=== PATIENT | male | born 1980 | race Two or more races ===

== ENCOUNTER 2023-07-31 11:27 | Inpatient (IN) | payer OTHER ==
[~2023-07-31] VITALS: Ht 154.9 cm; Wt 75.0 kg
[2023-07-31 16:58] LABS: PH,URINE DRUG SCREEN 6.5 (5.0-8.0)
[2023-07-31 17:06] LABS: ALCOHOL, URINE DRUG SCREEN NEGATIVE (NEGATIVE); AMPHET/METH SCREEN,URINE POSITIVE (NEGATIVE); BARBITURATE SCREEN, URINE NEGATIVE (NEGATIVE); BENZODIAZEPINES SCREEN,URINE NEGATIVE (NEGATIVE); CANNABINOID SCREEN,URINE POSITIVE (NEGATIVE); COCAINE SCREEN,URINE NEGATIVE (NEGATIVE); METHADONE SCREEN, URINE NEGATIVE (NEGATIVE); OPIATE SCREEN,URINE NEGATIVE (NEGATIVE); PHENCYCLIDINE SCREEN,URINE NEGATIVE (NEGATIVE)
[2023-07-31] MEDS: SODIUM CHLORIDE 0.9% 1,000 ML IV SCH (21:15)
[2023-07-31] MEDS ORDERED: ACETAMINOPHEN 325 MG TABLET PO PRN (21:15)
[2023-07-31] MEDS ORDERED: *CLINICAL-LEVOFLOXACIN IVPB DOSING CLINICAL ONE (21:15)
[2023-07-31] MEDS ORDERED: ONDANSETRON HCL 4 MG/2 ML VIAL IVP PRN (21:15)
[2023-07-31] MEDS ORDERED: LEVOFLOXACIN 500 MG/D5% WATER 100 ML IV ONE (21:30)
[2023-07-31] MEDS: LEVOFLOXACIN 500 MG/D5% WATER 100 ML IV SCH (23:45)
[2023-08-01 04:04] LABS: COVID AG,FIA SOURCE NASAL SWAB
[2023-08-01 04:23] LABS: SARS-COV2 (COVID) ANTIGEN,FIA Negative (Negative)
[2023-08-01] MEDS: SODIUM CHLORIDE 0.9% 1,000 ML IV SCH (05:33)
[2023-08-01] MEDS: MetroNIDAZOLE 500 MG TABLET PO SCH ×4 (06:11→23:53)
[2023-08-01] MEDS: LEVOFLOXACIN 500 MG/D5% WATER 100 ML IV SCH (06:11)
[2023-08-01] MEDS: HEPARIN SODIUM,PORCINE 5,000 UNITS/ML VIAL SQ SCH ×4 (08:00→23:53)
[2023-08-01 08:07] VITALS: BP 108/67; PULSE 55; RESP 18; TEMP 97.7
[2023-08-01] MEDS: DOCUSATE SODIUM 100 MG CAPSULE PO SCH ×2 (09:00→21:00)
[2023-08-01] MEDS ORDERED: PEG 3350/NA SULF,BICARB,CL/KCL 4000 ML SOLUTION PO ONE (16:00)
[2023-08-01 19:43] VITALS: BP 117/55; PULSE 56; RESP 18; TEMP 98.1
[2023-08-01] MEDS: ZOLPIDEM TARTRATE 5 MG TABLET PO PRN (20:59)
[2023-08-02] MEDS: SODIUM CHLORIDE 0.9% 1,000 ML IV SCH ×2 (01:51→16:09)
[2023-08-02 04:28] VITALS: BP 113/62; PULSE 55; RESP 18; TEMP 97.6
[2023-08-02] MEDS: HEPARIN SODIUM,PORCINE 5,000 UNITS/ML VIAL SQ SCH ×2 (08:00→16:00)
[2023-08-02] MEDS: MetroNIDAZOLE 500 MG TABLET PO SCH ×2 (08:06→16:40)
[2023-08-02] MEDS: DOCUSATE SODIUM 100 MG CAPSULE PO SCH ×2 (08:06→21:00)
[2023-08-02 08:49] VITALS: BP 105/65; PULSE 56; RESP 19; TEMP 98.2
[2023-08-02 19:35] VITALS: BP 114/59; PULSE 59; RESP 18; TEMP 97.2
[2023-08-02] MEDS: ZOLPIDEM TARTRATE 5 MG TABLET PO PRN (21:50)
[2023-08-02] MEDS: LEVOFLOXACIN 500 MG/D5% WATER 100 ML IV SCH (23:45)
[2023-08-03] MEDS: MetroNIDAZOLE 500 MG TABLET PO SCH ×2 (00:42→08:30)
[2023-08-03 03:44] VITALS: BP 107/57; PULSE 65; RESP 18; TEMP 98.3
[2023-08-03] MEDS: SODIUM CHLORIDE 0.9% 1,000 ML IV SCH (06:27)
[2023-08-03] MEDS: HEPARIN SODIUM,PORCINE 5,000 UNITS/ML VIAL SQ SCH ×2 (08:00)
[2023-08-03] MEDS: DOCUSATE SODIUM 100 MG CAPSULE PO SCH (08:32)
[2023-08-03 09:00] VITALS: BP 108/53; PULSE 49; RESP 18; TEMP 97.7
[2023-08-03] MEDS ORDERED: LEVO750T68 PO (11:53)
== END 2023-08-03 13:00 | DRG 395 ==
LOC: EMS 12:23 → ICUN 21:08 → 6S 08-01 05:10
PROVIDERS: ADMIT Internal Medicine; ATTEND Internal Medicine
DX: K37 Unspecified appendicitis (principal); K59.00 Constipation, unspecified; T18.3XXA Foreign body in small intestine, initial encounter; Z20.822 Contact with and (suspected) exposure to COVID-19; K52.9 Noninfective gastroenteritis and colitis, unspecified; W44.9XXA Unspecified foreign body entering into or through a natural orifice, initial encounter; Y92.89 Other specified places as the place of occurrence of the external cause; Z88.0 Allergy status to penicillin; Z91.199 Patient's noncompliance with other medical treatment and regimen due to unspecified reason; Y93.89 Activity, other specified; Y99.8 Other external cause status
CPT/HCPCS: 71250; 72192; 74150; 74176; 80307; 99285; J1644; J1956